=== PATIENT | female | born 1955 | race Hispanic/Latino ===

== ENCOUNTER → 2024-03-08 | Outpatient (CLI) | payer OTHER ==
[~2024-03-08] MED LIST: IOHEXOL-350 75 ML VIAL IV ONE
--- NOTE | 2024-03-08 09:25 | HMCIMG ---
CT ABDOMEN W/WO CONTRAST HISTORY: Abnormal finding COMPARISON: 06/21/2015 TECHNIQUE: Multiple sequential axial images of the abdomen were obtained from the dome of the diaphragm through iliac crests. Patient was given 75 cc of Omnipaque through intravenous route. Oral contrast was not given. FINDINGS: No pleural effusion is seen bilaterally. There is no evidence of parenchymal disease or pulmonary nodule of the visualized lower lungs. Degenerative changes are seen of the thoracolumbar spine. Liver measures 15.3 cm. Contrast is seen in the colon. Postcholecystectomy changes are seen. No bowel obstruction is seen. Large cystic mass is seen near the tail of the pancreas measuring 9.2 x 9.7 cm which is increased in size from previous study may be related to pancreatic pseudocyst with cystic neoplasm not completely excluded. The liver, spleen, adrenal glands and pancreas are unremarkable. There is no evidence of hydronephrosis bilaterally. No evidence of renal stone is seen. Fecal material is seen in the colon. There are normal-sized retroperitoneal and mesenteric lymph nodes. No ascites is seen. IMPRESSION: 1. Large cystic mass is seen near the tail of the pancreas measuring 9.2 x 9.7 cm which is increased in size from previous study may be related to pancreatic pseudocyst with cystic neoplasm not completely excluded. No bowel obstruction is seen. CT was performed with one or more following dose reduction techniques: automated exposure control, adjustment of the mA and kv according to patient's size, or use of a iterative reconstruction technique.
== END | disposition home or self-care (01) ==
LOC: RAH 07:47
PROVIDERS: ATTEND Internal Medicine Gastroenterology
DX: K86.2 Cyst of pancreas (principal); R10.10 Upper abdominal pain, unspecified; R93.3 Abnormal findings on diagnostic imaging of other parts of digestive tract; Z90.49 Acquired absence of other specified parts of digestive tract
CPT/HCPCS: 74170; Q9967